=== PATIENT | female | born 1990 | race American Indian/Alaskan Native ===

== ENCOUNTER 2017-03-27 17:49 | Emergency (ER) | payer SELFPAY ==
[2017-03-27 17:50] VITALS: BMI 28.5
[2017-03-27 18:06] VITALS: RESP 20
[2017-03-27 18:17] VITALS: BP 103/67; PULSE 73; TEMP 98.2; O2SAT 99
[2017-03-27 19:43] LABS: HCG,QUALITATIVE URINE NEGATIVE (NEGATIVE); SQUAMOUS EPITHIAL 2 /hpf (0-5); URINE BILIRUBIN NEGATIVE (NEGATIVE); URINE BLOOD 3+ (NEGATIVE); URINE CLARITY Hazy (Clear); URINE GLUCOSE (UA) NORMAL (Normal); URINE LEUKOCYTE ESTERASE 2+ Leu/uL (Negative); URINE NITRATE NEGATIVE (NEGATIVE); URINE PROTEIN 1+ mg/dL (NEGATIVE)
[2017-03-27 19:44] LABS: URINE COLOR YELLOW (YELLOW)
--- NOTE | 2017-03-27 19:56 | C.PDOC ---
History Of Present Illness 26 year old female presents to the ER with a complaint of dysuria and pelvic pain for the past 2 days. Patient reports using OTC medication today with no relief. Patient is currently on her menses; denies fever or flank pain. Time Seen by Provider: 03/27/17 18:54 Chief Complaint (Nursing): Female Genitourinary History Per: Patient History/Exam Limitations: no limitations Onset/Duration Of Symptoms: Days Current Symptoms Are (Timing): Still Present Quality Of Discomfort: Burning Associated Symptoms: Urinary Symptoms (Dysuria), Other (Pelvic pain) Alleviating Factors: None Recent travel outside of the [place]: No Abnormal Vaginal Bleeding: No Past Medical History Reviewed: Historical Data, Nursing Documentation, Vital Signs Vital Signs: Last Vital Signs Temp 98.2 F 03/27/17 18:02 Pulse 73 03/27/17 18:02 Resp 20 03/27/17 20:08 BP 103/67 03/27/17 18:02 Pulse Ox 99 03/27/17 20:12 - Medical History PMH: Anxiety, Asthma, Bipolar Disorder, Depression - [facility] Procedures MONITORING NOS (04/24/14) MANUAL ASSIST DELIV NEC (07/09/14) Family History: States: Unknown Family Hx - Social History Hx Alcohol Use: No Hx Substance Use: No - Immunization History Hx Tetanus Toxoid Vaccination: No Hx Influenza Vaccination: No Hx Pneumococcal Vaccination: No Review Of Systems Constitutional: Negative for: Fever Eyes: Negative for: Vision Change Cardiovascular: Negative for: Chest Pain, Palpitations Respiratory: Negative for: Shortness of Breath Gastrointestinal: Negative for: Nausea, Vomiting, Abdominal Pain, Diarrhea Genitourinary: Positive for: Dysuria, Frequency, Vaginal Bleeding (Currently menstruating). Negative for: Vaginal Discharge Musculoskeletal: Negative for: Back Pain Skin: Negative for: Rash Neurological: Negative for: Headache Physical Exam - Physical Exam Appears: Non-toxic, No Acute Distress Skin: Normal Color, Warm, Dry Head: Atraumatic, Normacephalic Eye(s): bilateral: Normal Inspection, EOMI Oral Mucosa: Moist Neck: Normal ROM Chest: Symmetrical, No Tenderness Cardiovascular: Rhythm Regular, No Murmur Respiratory: Normal Breath Sounds, No Rales, No Rhonchi, No Wheezing Gastrointestinal/Abdominal: Bowel Sounds, Soft, Tenderness (Suprapubic), No Distention, No Guarding, No Rebound Back: Normal Inspection, No CVA Tenderness, No Paraspinal Tenderness Extremity: Bilateral: Atraumatic, Normal Color And Temperature, Normal ROM Neurological/Psych: Oriented x3, Normal Speech Gait: Steady ED Course And Treatment O2 Sat by Pulse Oximetry: 99 (Room air) Pulse Ox Interpretation: Normal Medical Decision Making Medical Decision Making: Patient with urinary complaints. Urinalysis ordered, results were positive for UTI. Patient started on cipro. Patient remained afebrile in no distress and vital signs stable. Patient instructed to follow up with PMD for further evaluation or return if symptoms worsen. Disposition - Disposition Disposition: HOME/ ROUTINE Disposition Time: 19:55 Condition: GOOD Additional Instructions: Take antibiotic twice daily and be sure to finish taking all of antibiotic. Drink plenty of fluids. Follow up with your primary medical doctor or clinic in 2-5 days for further evaluation. Return to the emergency department at any time if symptoms persist or worsen. 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 - Scribe Statement The provider has reviewed the documentation as recorded by the Scribe Aime Salazar All medical record entries made by the Aureliaibdarwin were at my direction and personally dictated by me. I have reviewed the chart and agree that the record accurately reflects my personal performance of the history, physical exam, medical decision making, and the department course for this patient. I have also personally directed, reviewed, and agree with the discharge instructions and disposition.
== END 2017-03-27 20:08 | disposition home or self-care (01) ==
LOC: C.ER 17:49
DX: N39.0 Urinary tract infection, site not specified (principal)

== ENCOUNTER 2017-07-04 16:44 | Emergency (ER) | payer OTHER ==
[2017-07-04 16:44] VITALS: BMI 28.5
[2017-07-04 17:58] LABS: SQUAMOUS EPITHIAL 19 /hpf (0-5); URINE AMORPHOUS SEDIMENT OCC /ul (<OCC); URINE BACTERIA FEW (<OCC); URINE BILIRUBIN NEGATIVE (NEGATIVE); URINE BLOOD NEGATIVE (NEGATIVE); URINE CLARITY Hazy (Clear); URINE COLOR Yellow (YELLOW); URINE GLUCOSE (UA) NORMAL (Normal); URINE LEUKOCYTE ESTERASE 2+ Leu/uL (Negative); URINE PROTEIN 1+ mg/dL (NEGATIVE); URINE UROBILINOGEN NORMAL mg/dL (0.2-1.0)
[2017-07-04 18:15] LABS: HCG,QUALITATIVE URINE NEGATIVE (NEGATIVE)
--- NOTE | 2017-07-04 18:53 | C.PDOC ---
History Of Present Illness 27 year old female presents to the emergency department stating "I have a UTI." Pt c/o urinary frequency with dysuria. Notes she has a h/o UTI and this feels the same way. Also c/o constipation for 4 days. She notes she normally goes every 2-3 days. THis morning she at a buttered bun and yesterday she had chicken and rice. Has tried stool softners in the past without improvement. Patient denies back pain, vaginal discharge or bleeding, fevers, abdominal pain , or rash. Time Seen by Provider: 07/04/17 18:22 Chief Complaint (Nursing): Female Genitourinary History Per: Patient History/Exam Limitations: no limitations Onset/Duration Of Symptoms: Days (3) Current Symptoms Are (Timing): Still Present Quality Of Discomfort: Burning, "Pain" Associated Symptoms: Constipation, Urinary Symptoms. denies: Back Pain Past Medical History Reviewed: Historical Data, Nursing Documentation, Vital Signs Vital Signs: Last Vital Signs Temp 98.2 F 07/04/17 17:01 Pulse 64 07/04/17 17:01 Resp 17 07/04/17 17:01 BP 110/62 07/04/17 17:01 Pulse Ox 99 07/04/17 17:01 - Medical History PMH: Anxiety, Asthma, Bipolar Disorder, Depression Surgical History: No Surg Hx - [facility] Procedures MONITORING NOS (04/24/14) MANUAL ASSIST DELIV NEC (07/09/14) Family History: States: No Known Family Hx - Social History Hx Alcohol Use: No Hx Substance Use: No - Immunization History Hx Tetanus Toxoid Vaccination: No Hx Influenza Vaccination: No Hx Pneumococcal Vaccination: No Review Of Systems Except As Marked, All Systems Reviewed And Found Negative. Gastrointestinal: Positive for: Abdominal Pain, Constipation Genitourinary: Positive for: Dysuria, Frequency Physical Exam - Physical Exam Appears: Well, Non-toxic, No Acute Distress Skin: Normal Color, Warm, Dry Head: Atraumatic, Normacephalic Eye(s): bilateral: Normal Inspection, EOMI Nose: Normal Oral Mucosa: Moist Neck: Normal ROM, Supple Chest: Symmetrical Respiratory: No Accessory Muscle Use Gastrointestinal/Abdominal: Soft, No Tenderness, No Distention, No Guarding Back: No CVA Tenderness, No Vertebral Tenderness Extremity: Normal ROM Neurological/Psych: Oriented x3, Normal Speech, Normal Cognition ED Course And Treatment Progress Note: Pt was offered medication in ER for constipation. Pt requests it for home. Instructed to follow up with PMD in 1-2 days or return to ER if symtpoms persist or worsen. Disposition - Disposition Disposition: HOME/ ROUTINE Disposition Time: 18:51 Condition: STABLE Additional Instructions: Increase fiber and water in your diet. Return to ER if symptoms persist or worsen. 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 - Scribe Statement The provider has reviewed the documentation as recorded by the Scribe (Gregory Russell) All medical record entries made by the Scribe were at my direction and personally dictated by me. I have reviewed the chart and agree that the record accurately reflects my personal performance of the history, physical exam, medical decision making, and the department course for this patient. I have also personally directed, reviewed, and agree with the discharge instructions and disposition.
[2017-07-04 19:22] VITALS: BP 110/62; PULSE 64; RESP 17; TEMP 98.2; O2SAT 99
== END 2017-07-04 19:22 | disposition home or self-care (01) ==
LOC: C.ER 16:44
DX: N39.0 Urinary tract infection, site not specified (principal); K59.00 Constipation, unspecified

== ENCOUNTER 2018-01-10 02:04 | Emergency (ER) | payer SELFPAY ==
[2018-01-10 02:05] VITALS: BMI 28.5
[2018-01-10 02:27] VITALS: BP 106/67; PULSE 88; RESP 20; TEMP 98.1; O2SAT 97
--- NOTE | 2018-01-10 02:33 | C.PDOC ---
History Of Present Illness 27 year old female presents to the ER with a complaint of dysuria and lower abdominal pain that began today, associated with pink tinged urine. Patient believes she has a UTI, states she usually gets them when she holds in her urine for a prolong period of time and notes she recently was on a long car ride from [place] in which she held her urine in. She has been drinking a lot of water but has not taken any medication for the symptoms. Denies fever or back pain. Time Seen by Provider: 01/10/18 02:16 Chief Complaint (Nursing): Female Genitourinary History Per: Patient History/Exam Limitations: no limitations Onset/Duration Of Symptoms: Hrs Current Symptoms Are (Timing): Still Present Quality Of Discomfort: Unable To Describe Associated Symptoms: Urinary Symptoms (Dysuria, pink tinged urine). denies: Fever, Back Pain Recent travel outside of the [facility]: No Abnormal Vaginal Bleeding: No Past Medical History Reviewed: Historical Data, Nursing Documentation, Vital Signs Vital Signs: Last Vital Signs Temp 98.1 F 01/10/18 02:23 Pulse 88 01/10/18 02:23 Resp 20 01/10/18 02:23 BP 106/67 01/10/18 02:23 Pulse Ox 97 01/10/18 02:23 - Medical History PMH: Anxiety, Asthma, Bipolar Disorder, Depression - [facility] Procedures MONITORING NOS (04/24/14) MANUAL ASSIST DELIV NEC (07/09/14) Family History: States: Unknown Family Hx - Social History Hx Alcohol Use: No Hx Substance Use: No - Immunization History Hx Tetanus Toxoid Vaccination: No Hx Influenza Vaccination: No Hx Pneumococcal Vaccination: No Review Of Systems Constitutional: Negative for: Fever Gastrointestinal: Positive for: Abdominal Pain Genitourinary: Positive for: Dysuria, Other ([place] tinged urine) Musculoskeletal: Negative for: Back Pain Physical Exam - Physical Exam Appears: Non-toxic Skin: Normal Color, Warm, Dry Head: Atraumatic, Normacephalic Eye(s): bilateral: Normal Inspection Oral Mucosa: Moist Chest: Symmetrical, No Tenderness Cardiovascular: Rhythm Regular Respiratory: Normal Breath Sounds, No Rales, No Rhonchi, No Wheezing Gastrointestinal/Abdominal: Soft, Tenderness (Mild suprapubic), No Guarding, No Rebound Back: No CVA Tenderness Neurological/Psych: Oriented x3, Normal Speech ED Course And Treatment O2 Sat by Pulse Oximetry: 97 (Room air) Pulse Ox Interpretation: Normal Medical Decision Making Medical Decision Making: Urinalysis ordered, results were positive for UTI. Patient is resting comfortably in the ER in no acute distress, vitals are stable, will started on antibiotics and discharge home with Rx and instructions to follow up with PMD. Disposition Counseled Patient/Family Regarding: Diagnosis, Need For Followup, Rx Given - Disposition Referrals: [facility] [Outside] [facility] [Outside] Disposition: HOME/ ROUTINE Disposition Time: 02:53 Condition: GOOD Additional Instructions: Take antibiotic twice daily and be sure to finish taking all of antibiotic. Drink plenty of fluids. If urine culture was performed, call back for results in 2-3 days for results to confirm antibiotic is treating UTI well. Prescriptions: Cephalexin [cephalexin] 500 mg PO Q12 #14 cap Instructions: Urinary Tract Infection, Adult (DC) Forms: [employer] (Lithuanian) - POA Present On Arrival: None - Clinical Impression Clinical Impression: UTI (urinary tract infection) - PA / EDUCATIONAL PROGRAMMING DIRECTOR / Resident Statement MD/DO has reviewed & agrees with the documentation as recorded. - Scribe Statement The provider has reviewed the documentation as recorded by the Scribe Aime Salazar All medical record entries made by the Scribe were at my direction and personally dictated by me. I have reviewed the chart and agree that the record accurately reflects my personal performance of the history, physical exam, medical decision making, and the department course for this patient. I have also personally directed, reviewed, and agree with the discharge instructions and disposition.
[2018-01-10 02:38] LABS: HCG,QUALITATIVE URINE NEGATIVE (NEGATIVE)
[2018-01-10 02:47] LABS: SQUAMOUS EPITHIAL 7 /hpf (0-5); URINE BACTERIA MANY (<OCC); URINE BILIRUBIN NEGATIVE (NEGATIVE); URINE BLOOD 3+ (NEGATIVE); URINE CLARITY Hazy (Clear); URINE COLOR Yellow (YELLOW); URINE GLUCOSE (UA) NORMAL (Normal); URINE LEUKOCYTE ESTERASE 3+ Leu/uL (Negative); URINE PROTEIN 1+ mg/dL (NEGATIVE); URINE UROBILINOGEN NORMAL mg/dL (0.2-1.0)
== END 2018-01-10 03:21 | disposition home or self-care (01) ==
LOC: C.ER 02:04
DX: N39.0 Urinary tract infection, site not specified (principal)